=== PATIENT | male | born 1990 | race Caucasian/White ===

== ENCOUNTER 2016-08-25 23:46 | Emergency (ER) | payer BC ==
[~2016-08-25] VITALS: Ht 167.6 cm; Wt 88.0 kg
[2016-08-25 23:56] VITALS: TEMP 36.9; Ht 167.6 cm; Wt 88.0 kg
[2016-08-26] MEDS ORDERED: AMOXICILLIN 250 MG CAP PO STA (00:06)
[2016-08-26] MEDS ORDERED: AMOX500C3 PO (00:08)
[2016-08-26 00:12] VITALS: BP 138/87; PULSE 77; O2SAT 98
--- NOTE | 2016-08-26 02:09 | EMERGENCY ROOM VISIT NOTE ---
History Report prepared by Álvaro: Sveta Kaiser Under the Supervision of: Dr. Aries Flanagan M.D. First contact with patient: 23:59 Chief Complaint: EAR PAIN Stated Complaint: RIGHT EAR PAIN-SUSPECTED EAR INFECTION\ History of Present Illness The patient is a 25 year old male who presents to the Emergency Room with complaints of constant right sided ear pain beginning earlier this evening. He describes his pain as a pressure and states that it feels like there is fluid in his ear. He reports intermittent sharp pains. The patient has had cold and flu-like symptoms intermittent for the past few weeks. He denies any fevers or bleeding from his ear. He rates his current pain as a 4/10 in severity. Source of History: patient Onset: earlier this evening Position: ear (right) Symptom Intensity: 4/10 Quality: sharp Timing: constant Associated Symptoms: No fevers Note: Pt denies any bleeding from his ear. Review of Systems See HPI for pertinent positives & negatives. A total of 6 systems reviewed and were otherwise negative. Past Medical & Surgical Medical Problems: (1) No significant active problems Family History No pertinent history stated. Social History Smoking Status: Never Smoker Current/Historical Medications Scheduled Amoxicillin (Amoxil), 500 MG PO TID Allergies Coded Allergies: Cefaclor (Verified Allergy, Intermediate, Inflammed Joints, 08/25/16) Physical Exam Vital Signs Date Time Temp Pulse Resp B/P Pulse Ox O2 Delivery O2 Flow Rate FiO2 08/26/16 00:12 77 16 138/87 98 Room Air 08/25/16 23:56 36.9 74 16 145/91 96 Room Air Physical Exam Constitutional: Vital signs reviewed. Eyes: Pupils are equal round reactive to light. Conjunctiva are noninjected. ENT: Pharynx is clear without erythema or exudate. Mucous membranes are moist. Neck supple without meningeal signs. Right TM is erythematous slightly bulging , no perforation. Respiratory: Clear to auscultation bilaterally. Breath sounds are equal bilaterally. Cardiovascular: Regular rate and rhythm. No rubs or gallops. Integumentary: No cyanosis. Neurological: The patient is awake and alert. No focal deficits. Psychiatric: Normal affect. Medical Decision & Procedures Medications Administered Medications (Trade) Dose Ordered Sig/Jorge Route Start Time Stop Time Status Last Admin Dose Admin Amoxicillin (Amoxil Cap) 500 mg NOW STAT PO 08/26/16 00:06 08/26/16 00:07 DC 08/26/16 00:12 500 MG ED Course 2359: The patient was evaluated in room B2. A complete history and physical exam was performed. At this time I discussed the results and treatment plan with the patient. I answered all of his questions and he verbalized agreement. The patient will be discharged home. 0006: Amoxicillin 500 mg PO Medical Decision This is a 25-year-old male who presents with right ear pain. On examination the patient has a right otitis media. There is no evidence of perforation or purulence. I did treat patient with amoxicillin. He was discharged with a prescription for amoxicillin. Impression Primary Impression: Right otitis media Scribe Attestation The scribe's documentation has been prepared under my direct and personally reviewed by me in its entirety. I confirm that the note above accurately reflects all work, treatment, procedures, and medical decision making performed by me. Departure Information Dispostion Home / Self-Care Prescriptions Amoxicillin (AMOXIL) 500 Mg Cap 500 MG PO TID, #30 CAP Prov: Aries Flanagan M.D. 08/26/16 Referrals No Doctor, Assigned (PCP) Forms HOME CARE DOCUMENTATION FORM, IMPORTANT VISIT INFORMATION, WORK / SCHOOL INSTRUCTIONS Patient Instructions ED Otitis Media Abx Tx, My [facility] Additional Instructions You have been examined and treated today on an emergency basis only. This is not a substitute for, or an effort to provide, complete comprehensive medical care. It is impossible to recognize and treat all injuries or illnesses in a single emergency department visit. It is therefore important that you follow up closely with your physician. Call as soon as possible for an appointment. Return for worsening symptoms or if you develop fever, vomiting, or any other concerning symptoms. Problem Qualifiers Primary Impression: Right otitis media Otitis media type: unspecified Chronicity: unspecified Qualified Codes: H66.91 - Otitis media, unspecified, right ear
== END 2016-08-26 00:15 | disposition home or self-care (01) ==
LOC: C.EDB 23:48
DX: H66.91 Otitis media, unspecified, right ear (principal)